=== PATIENT | female | born 1980 | race African-American/Black ===

== ENCOUNTER → 2017-01-12 16:39 | Outpatient (CLI) | payer BC ==
[2013-03-28 08:55] VITALS: BMI 27.6
== END | disposition home or self-care (01) ==
LOC: D.MAMMO 01-08 16:00
DX: Z12.31 Encounter for screening mammogram for malignant neoplasm of breast (principal)

== ENCOUNTER → 2017-02-05 09:30 | Outpatient (CLI) | payer BC ==
[2013-03-28 08:55] VITALS: BMI 27.6
== END ==
LOC: D.MAMMO 09:30
DX: R92.8 Other abnormal and inconclusive findings on diagnostic imaging of breast (principal)

== ENCOUNTER → 2017-06-22 16:38 | Outpatient (CLI) | payer BC ==
[2013-03-28 08:55] VITALS: BMI 27.6
== END | disposition home or self-care (01) ==
LOC: D.MAMMO 14:30
DX: R92.8 Other abnormal and inconclusive findings on diagnostic imaging of breast (principal)